=== PATIENT | male | born 1985 | race Caucasian/White ===

== ENCOUNTER 2017-04-10 15:38 | Emergency (ER) | payer OTHER ==
[2017-04-10 15:52] VITALS: RESP 18; TEMP 98.2
[2017-04-10] MEDS ORDERED: TDAP ADULT 0.5 ML INJ (BOOSTRIX) IM ONE (16:16)
--- NOTE | 2017-04-10 16:26 | EDPHY ---
H & P Smoking Status: Never smoked Time Seen by Provider: 04/10/17 16:03 HPI/ROS: CHIEF COMPLAINT: Scalp laceration HISTORY OF PRESENT ILLNESS: Took a cleat to the head about an hour ago. No loss of consciousness and no visual symptoms; only has a laceration on the left side of his head. REVIEW OF SYSTEMS: No other injury, no neck pain PAST MEDICAL HISTORY: Negative General Appearance: Alert and conversant, cooperative. Laceration left parietal scalp. 3 cm. Alert and ambulatory not ataxic and normal speech. No other facial or C-spine tenderness and no hemotympanum. Emergency Department course/MDM: Wound anesthetized by myself. Tetanus updated. Sutured by Maggie VARGAS (Ford Salazar) Constitutional: Initial Vital Signs Temperature (C) 36.8 C 04/10/17 15:45 Heart Rate 84 04/10/17 15:45 Respiratory Rate 18 04/10/17 15:45 Blood Pressure 104/78 04/10/17 15:45 O2 Sat (%) 97 04/10/17 15:45 O2 Delivery Mode Room Air Allergies/Adverse Reactions: Penicillins Allergy (Intermediate, Verified 04/10/17 15:49) Hives Sulfa (Sulfonamide Antibiotics) Allergy (Intermediate, Verified 04/10/17 15:49) Hives Home Medications: Medication Instructions Recorded NK [No Known Home Meds] 04/10/17 MDM/Departure - MDM Procedures: I was asked by Dr. Ford Salazar to repair scalp laceration. Laceration repair. Verbal consent was obtained from the patient. The 3 cm laceration on the location was anesthetized using 1% lidocaine with epinephrine. The wound was irrigated with saline, draped and explored to its base with a gloved finger. There were no deep structures involved. The wound was repaired with 5 0 Prolene , 7 sutures. The wound repair was simple. The procedure was performed by myself. (Maggie Ash) Medications Given: Discontinued Medications Diphtheria/Tetanus/Acell Pertussis (Boostrix) 0.5 ml IM .ONCE ONE Stop: 04/10/17 16:17 Last Admin: 04/10/17 16:21 Dose: 0.5 ml - Depart Disposition: Home, Routine, Self-Care Clinical Impression: Scalp laceration Qualifiers: Encounter type: initial encounter Qualified Code(s): S01.01XA - Laceration without foreign body of scalp, initial encounter Condition: Good Instructions: Laceration (ED), Head Injury (ED) Additional Instructions: Wound Care Follow-Up: Removal of sutures in 10 days. Suture removal is complimentary in uncomplicated cases. Infection or abnormal findings would require reevaluation by the MD. In that case, you may be billed. Referrals: NONE *PRIMARY CARE P,. [Primary Care Provider] - As per Instructions
[2017-04-10 17:11] VITALS: BP 125/117; PULSE 92; O2SAT 96
== END 2017-04-10 17:10 | disposition home or self-care (01) ==
PROC: 0HQ0XZZ Repair Scalp Skin, External Approach (ICD-10-PCS; principal; 2017-04-10)
DX: S01.01XA Laceration without foreign body of scalp, initial encounter (principal); Z23 Encounter for immunization; W45.8XXA Other foreign body or object entering through skin, initial encounter; Y99.8 Other external cause status; Y93.66 Activity, soccer